=== PATIENT | male | born 1975 | race Two or more races ===

== ENCOUNTER 2021-06-04 11:20 | Emergency (ER) | payer MEDICAID ==
[~2021-06-04] VITALS: Ht 185.4 cm; Wt 110.0 kg
[2021-06-04 11:30] VITALS: BP 98/64
--- NOTE | 2021-06-04 11:33 | NUR ---
pt resting on a hospital gurney while awaiting an md to assess. he is calm cooperative, and comfortable. there is no acute distress noted upon my assessment. i will monitor and treat as ordered, as well as prn while awaiting a plan of care.
--- NOTE | 2021-06-04 11:53 | NUR ---
MD IS AT THE BEDSIDE TO ASSESS
[2021-06-04 12:38] LABS: BASOPHILS % (AUTO) 1 % (0-1); EOSINOPHILS % (AUTO) 0 % (1-7); LYMPHOCYTES % (AUTO) 9 % (22-44); MEAN CORPUSCULAR HEMOGLOBIN 30.9 pg (27.5-34.5); MEAN PLATELET VOLUME 7.1 fL (7.4-10.4); MONOCYTES % (AUTO) 6 % (2-9); NEUTROPHILS % (AUTO) 83 % (42-75); PLATELET COUNT 245 x10^3/uL (130-400); RED BLOOD COUNT 4.63 x10^6/uL (4.38-5.82); RED CELL DISTRIBUTION WIDTH 14.2 % (9.4-14.8)
[2021-06-04 12:47] LABS: ALBUMIN 3.5 g/dL (3.4-5.0); ANION GAP 7 mmol/L (5-15); CALCIUM 8.8 mg/dL (8.5-10.1); CHLORIDE 106 mmol/L (98-107); CREATININE 1.04 mg/dL (0.7-1.3)
--- NOTE | 2021-06-04 14:22 | NUR ---
UNABLE TO ARROUSE PT. WILL CTM.
== END 2021-06-04 15:40 | disposition home or self-care (01) ==
LOC: ED 15:30
DX: F10.220 Alcohol dependence with intoxication, uncomplicated (principal); Y90.0 Blood alcohol level of less than 20 mg/100 ml
CPT/HCPCS: 36415; 80048; 80320; 82040; 85025; 99283; G0480